=== PATIENT | male | born 1965 | race Caucasian/White ===

== ENCOUNTER 2017-07-25 14:34 | Emergency (ER) | payer SELFPAY ==
[~2017-07-25] VITALS: Ht 170.2 cm; Wt 70.3 kg
--- OUTSIDE RECORDS SUMMARY | 2017-07-25 14:41 | XMS REPORT ---
Author ELADIO Leach [facility] e[employer] Address Unknown Phone Unavailable Care Team Providers Care Trademark Attorney Name Role Phone ELADIO CARRASCO CP Unavailable Allergies, Adverse Reactions, Alerts Substance Reaction Event Type N.K.D.A. Info Not Available Non Drug Allergy Problems Problem Type Condition Code Onset Dates Condition Status Assessment Abscess L02.91 Active Medications Medication Code System Code Instructions Start Date End Date Status Dosage Bactrim DS [facility] [place] [id number] 800-160 MG Orally Twice a day Feb 01, 2016 Feb 11, 2016 1 tablet Procedures Procedure Coding System Code Date Office Visit, Est Pt., Level 3 CPT-4 48082 Feb 01, 2016 Vital Signs Date/Time: Feb 01, 2016 Cardiac Monitoring Heart Rate 68 bpm Weight 138.6 lbs Height 67 in BMI 21.71 Index Blood Pressure Diastolic 78 mmHg Blood Pressure Systolic 122 mmHg Results No Known Results Summary Purpose eClinicalWorks Submission
--- NOTE | 2017-07-25 15:23 | ED General ---
General Chief Complaint: Rect Problems Stated Complaint: ANAL BLEEDING,PAIN Nursing Triage Note: c/o rectal pain. Feels like "something is sticking out of my butt". Notices blood when wiping. Nursing Sepsis Screen: No Definite Risk Source of Information: Patient Exam Limitations: No Limitations History of Present Illness Date Seen by Provider: Jul 25, 2017 Time Seen by Provider: 15:23 Initial Comments 52-year-old male patient presents to the emergency department with complaints of rectal pain and "something sticking out of my butt." Patient reports lifting a very heavy piece of metal yesterday. Last night noted something sticking outside of the anus. Also notes blood on the toilet paper with wiping. Timing/Duration: 1 Day Modifying Factors: worse with Other (worse with wiping and having a bowel movement.) Allergies and Home Medications Allergies Coded Allergies: No Known Drug Allergies (Unverified , 07/25/17) Home Medications Hydrocortisone 28.35 Gm Cream.appl, 28.35 GM RC UD Apply to hemorrhoids 4 times daily 7-10 days. Prescribed by: CHANDRAKANT BARTON on 07/25/17 1615 Lidocaine 15 Gm Cream..g., 15 GM TP UD PRN for pain Apply to hemorrhoids 4 times daily prn pain Prescribed by: CHANDRAKANT BARTON on 07/25/17 1615 Patient Home Medication List Home Medication List Reviewed: Yes Constitutional: no symptoms reported Respiratory: no symptoms reported Cardiovascular: no symptoms reported Gastrointestinal: see HPI, No abdominal pain, No constipation, No diarrhea, No hematemesis, No loss of appetite, No melena, No nausea, No vomiting, other ( Notes a small amount of blood on the toilet paper with wiping.) Genitourinary: No decreased output, No discharge, No dysuria, No frequency, No hematuria, No pain Musculoskeletal: no symptoms reported Skin: no symptoms reported Psychiatric/Neurological: No Symptoms Reported All Other Systems Reviewed Negative Unless Noted: Yes (Negative excepted noted.) Past Edepgsq-Txlzvc-Ccvopg Hx Patient Social History Alcohol Use: Denies Use Recreational Drug Use: No Smoking Status: Current Everyday Smoker Recent Foreign Travel: No Contact w/Someone Who Travel: No Recent Infectious Disease Expo: No Surgeries History of Surgeries: No Respiratory History of Respiratory Disorde: No Cardiovascular History of Cardiac Disorders: No Neurological History of Neurological Disord: No Genitourinary History of Genitourinary Disor: No Gastrointestinal History of Gastrointestinal Di: No Musculoskeletal History of Musculoskeletal Dis: No Endocrine History of Endocrine Disorders: No HEENT History of HEENT Disorders: No Cancer History of Cancer: No Psychosocial History of Psychiatric Problem: No Integumentary History of Skin or Integumenta: No Blood Transfusions History of Blood Disorders: No Reviewed Nursing Assessment Reviewed/Agree w Nursing PMH: Yes Family Medical History Significant Family History: No Pertinent Family Hx Physical Exam Vital Signs Vital Signs - First Documented 07/25/17 14:50 Temp 98.4 Pulse 77 Resp 16 B/P (MAP) 134/98 (110) Pulse Ox 98 O2 Delivery Room Air Capillary Refill : Less Than 3 Seconds General Appearance: No Apparent Distress, WD/WN Respiratory: Lungs Clear, Normal Breath Sounds, No Accessory Muscle Use, No Respiratory Distress Cardiovascular: Regular Rate, Rhythm, No Edema, No Murmur, Normal Peripheral Pulses Gastrointestinal: Normal Bowel Sounds, No Organomegaly, Non Tender, Soft, No Distended Rectal: Normal Rectal Tone, Hemorrhoids (circumferential hemorrhoids noted.), No Mass, Tenderness, Other (bright red blood noted per finger tip. ) Back: Normal Inspection Extremity: Normal Capillary Refill, No Pedal Edema Neurologic/Psychiatric: Alert, Oriented x3, Normal Mood/Affect Skin: Normal Color, Warm/Dry Progress/Results/Core Measures Suspected Sepsis Recent Fever Within 48 Hours: No Infection Criteria Present: None New/Unexplained Altered Menta: No Sepsis Screen: No Definite Risk Sepsis Diagnosis: SIRS Temperature:98.4 Pulse: 77 Respiratory Rate: 16 Blood Pressure 134 /98 Mean: 110 Results/Orders Vital Signs/I&O Vital Sign - Last 12Hours 07/25/17 14:50 Temp 98.4 Pulse 77 Resp 16 B/P (MAP) 134/98 (110) Pulse Ox 98 O2 Delivery Room Air Capillary Refill : Less Than 3 Seconds Blood Pressure Mean: 110 Departure Communication (Admissions) Progress Notes Patient seen and evaluated. Rectal exam performed at bedside with Hugo Cali RN present. Plan for discharge to home with Proctosol-HC and topical lidocaine for pain. Patient to follow-up with his family care provider for recheck. Impression Impression: Primary Impression: Hemorrhoids Disposition: HOME, SELF-CARE Condition: Improved Departure-Patient Inst. Decision time for Depature: 15:53 Referrals: MELBA SHAH BRETT D DO JENKINS, XAVIER M MD KIDO, TAKAAKI MD NO,LOCAL PHYSICIAN (PCP) Primary Care Physician Patient Instructions: Hemorrhoids (DC) Add. Discharge Instructions: All discharge instructions reviewed with patient and/or family. Voiced understanding. Medications as instructed. Tylenol Extra Strength over-the- counter as directed for pain. Ibuprofen 800 mg by mouth every 8 hours as needed for pain. Sitz baths twice daily and after each bowel movement as needed for pain. Colace stool softener 100 mg by mouth twice daily. MiraLAX [id number] 17 g mixed with 8 ounces of fluids by mouth at bedtime daily. High fiber diet. Drink plenty of fluids. Follow-up with your family practitioner for recheck as an outpatient. You may need to follow-up with a general surgeon for discussion of possible need for colonoscopy with hemorrhoid banding versus hemorrhoids removal. Return to the emergency department for worsened symptoms or any other concerns. Scripts Lidocaine (Recticare) 15 Gm Cream..g. 15 GM TP UD Y for pain, #1 TUBE 0 Refills Apply to hemorrhoids 4 times daily prn pain Prov: CHANDRAKANT BARTON 07/25/17 Hydrocortisone (Proctosol-Hc) 28.35 Gm Cream.appl 28.35 GM RC UD, #1 APPLIC 0 Refills Apply to hemorrhoids 4 times daily 7-10 days. Prov: CHANDRAKANT BARTON 07/25/17 Work/School Note: Local [employer] CHANDRAKANT BARTON Jul 25, 2017 15:23
[2017-07-25] MEDS ORDERED: HYDR28.341 RC (16:15)
[2017-07-25] MEDS ORDERED: LIDO15CR6 TP (16:15)
[2017-07-25 16:26] VITALS: BP 138/90
== END 2017-07-25 16:26 | disposition home or self-care (01) ==
LOC: EDUNIT# 14:34 → ER 14:37
DX: K64.9 Unspecified hemorrhoids (principal); F17.200 Nicotine dependence, unspecified, uncomplicated
CPT/HCPCS: 99282